=== PATIENT | female | born 1940 | race Caucasian/White ===

== ENCOUNTER → 2016-10-19 | Outpatient (CLI) | payer OTHER ==
[~2016-10-19] VITALS: Ht 160 cm; Wt 68.9 kg
[~2016-10-19] MED LIST: ADULT LOW DOSE81 MG PO; ALTERIL; AVALIDE 150-121 EACH PO; CELEBREX 200 M200 M1 PO; CENTRUM SILVER1 EAC1 PO; CITRACAL + D C1 EACH PO; CLONAZEPAM 1 MG1 M1; CLONAZEPAM 1 MG1 M1 PO; CO Q-10200 MG PO; COLACE100 MG PO; COUMADIN 5 MG TA5 M1 PO; DOCUSATE SODIU100 MG PO; DULERA 100 MCG/13 GM; FLEXERIL PO; HYDROCHLOROTH12.5 MG PO; HYDROCODON-ACE1 EAC4 PO; HYDROCODON-ACE1 EAC5 PO; HYDROXYCHLOROQ200 M1 PO; IRBESARTAN-HCT1 EAC1 PO; LESCOL XL80 MG PO; LIDODERM 5%1 PATC1 TRANSDERM; LOVENOX SC; MECLIZINE HCL25 M1 PO; MOBIC15 MG PO; NORCO 5-325 TA1 EACH PO; PROAIR HFA8.5 GM; PROLIA60 MG/1 ML SQ; SLOW FE 160MG160 MG PO; SYMBICORT160 MCG/4. INH; SYNTHROID PO; TIROSINT125 MCG PO; TOPAMAX50 MG PO; TRAMADOL 50 MG50 MG PO; TRICOR145 MG PO; TRILIPIX OR; VITAMIN E400 UNIT PO; WELLBUTRIN SR150 MG PO; ZEGERID 40 MG1 EACH PO; ZETIA10 MG PO; [UNRECOGNIZED DRUG - OTHER] PO; pravastatin PO
--- NOTE | ~2016-10-19 | HPC ---
[facility] [address] [place] [address] PAIN MANAGEMENT CONSULTATION Name: KERLINE STERLING Bruce Room #: REG [facility].#: [id number] Admission: 10/19/16 Attend Phys: Junaid Syed DO Discharge: Date of : 38 Report #: [id number] THIS REPORT FOR: //name// CC: Tay Syed The patient is a very pleasant 76-year-old female, being treated for lumbar radiculopathy status post decompressive laminectomy, history of cervical radiculopathy. The patient was seen nearly a year ago, 10/07/2015, for lumbar radiculopathy, given a single L5-S1 epidural injection with near 90% relief for many months, pain has gradually begun to recur without antecedent trauma and overuse. Pain is in the low back radiating to the right leg. The patient rises from chair using armrest, modestly antalgic gait. Lumbar flexion is limited. Positive straight leg raise on the right. Diffuse tenderness across the low back. No discrete trigger points were noted. ASSESSMENT: Symptomatic lumbar radiculopathy status post decompressive laminectomy. The patient had excellent relief following a single injection nearly a year ago, pain has begun to recur without antecedent trauma and overuse. Clinical exam corresponds with L5 radicular pattern. RECOMMENDATION: Lumbar epidural injection under fluoroscopy at L5-S1. Follow up in 3 weeks for reevaluation, cancel if doing well. PROCEDURE: Lumbar epidural injection under fluoroscopy. PROCEDURE NOTE: After both written and informed consent to include risk of spinal cord damage, increased pain, weakness and dural puncture, the patient was taken to the fluoroscopy suite, placed in the prone position. After sterile prep and drape, a skin wheal with lidocaine was raised. A 22-gauge epidural Tuohy needle was inserted in the midline at L5-S1 with good loss to resistance. Negative aspiration for cerebrospinal fluid or blood was noted. Then 1 mL of Omnipaque under biplanar fluoroscopy showed good spread within the epidural space. This was followed with 80 mg of triamcinolone plus 1 mL of 1.5% preservative-free Xylocaine, 0.5 mL Xylocaine was then injected to flush the needle; it was removed. The patient was monitored for an appropriate period of time and discharged in good and stable condition. By: 1224 [id number] Junaid Syed DO /nt
[2016-10-19 11:19] VITALS: BP 147/84
== END ==
LOC: PAIN 06:48
DX: M54.16 Radiculopathy, lumbar region (principal); M54.12 Radiculopathy, cervical region; Z98.890 Other specified postprocedural states

== ENCOUNTER → 2017-12-11 | Outpatient (CLI) | payer OTHER ==
[~2017-12-11] VITALS: Ht 160 cm; Wt 69.4 kg
[~2017-12-11] MED LIST changes: +CALCIUM 500 +1 EAC5 PO; +FENOFIBRIC ACI135 MG PO; +FIBER500 MG PO; +LIDODERM1 EACH TRANSDERM; +MOBIC7.5 MG PO; +OMEPRAZOLE-BIC1 EAC1 PO; +PRAVACHOL40 MG PO; +ROPINIROLE HCL2 MG PO; -TRILIPIX OR; +TRILIPIX PO
--- NOTE | ~2017-12-11 | PATH ---
[facility] [address] [place] [address] PATHOLOGY RPT PROCEDURE Name: KERLINE STERLING Bruce Room #: REG [facility] Janette.#: [id number] Admission: 12/11/17 Date of : 38 Discharge: Report #: [id number] Path Case #: [id number] [facility] Accession Number: [id number] . 01 Material submitted: . BIOPSY OF COLITIS @ 35 CM R/O ISCHEMIC COLITIS . 01 Clinical history: . Pre-Op DX: Rectal bleeding Post-Op DX: Colitis, hemorrhoids . 02 Diagnosis: Large intestinal mucosa, biopsy of colitis at 35 cm, rule out ischemic colitis, endoscopic biopsy: - Compatible with ischemic colitis. (Please see comment). - Negative for dysplasia or malignancy. [facility]/12/12/2017 . 02 Comment: Examination of the "colitis at 35 cm", biopsy tissue shows fibrotic lamina propria, loss of surface epithelium associated with ulceration, as well as degenerative changes within the lamina propria including loss of crypts in multiple areas. Fibrin-filled vessels are not identified. Subtle architectural abnormalities are present. Overall, provided the clinical suspicion of ischemic colitis, the findings are certainly compatible with ischemic colitis. The differential diagnosis includes pseudomembranous colitis, as well as medication-induced colitis. There is no dysplasia or malignancy present. . (IUV:mml; 12/12/17) . 02 Electronically signed: . Edwige Frank MD, Pathologist NPI- [id number] . 01 Gross description: . Received in formalin labeled "Kerline Sterling, BX of colitis, rule out ischemic colitis," and additionally labeled on the requisition as "at 35 cm," are 4 segments of humphries soft tissue measuring 1.1 x 0.5 x 0.1 cm in aggregate dimensions and ranging from 0.2 to 0.5 cm in maximum dimension. The specimen is submitted entirely in cassette A1. (TSD; 12/11/2017) TOB/TOB . 02 Pathologist provided ICD-10: K55.9 . [address] [address] PATHOLOGY RPT PROCEDURE Name: KERLINE STERLING Room #: REG [facility] Rajwinder#: [id number] Admission: 12/11/17 Date of : 38 Discharge: Report #: [id number] Path Case #: [id number] [facility] . [id number] Performed at: 01 [facility] [address], [place], [place] [id number] MD Jimy Tamez MD Phone: [phone] Performed at: [address] [id number] MD Edwige Frank MD Phone: [phone]
--- NOTE | ~2017-12-11 | P ---
[facility] [place] [address] PROCEDURE REPORT Name: KERLINE STERLING Room #: REG [facility]#: [id number] Admission: 12/11/17 Attend Phys: Julio C Kirby Discharge: Date of : 38 Report #: [id number] THIS REPORT FOR: //name// CC: Julio C Caro DATE OF SERVICE: 12/11/2017 PROCEDURE PERFORMED: Flexible sigmoidoscopy with biopsies. HISTORY OF PRESENT ILLNESS: The patient is a 77-year-old female who was seen by myself in the office on 10/31/2017 with complaints of intermittent bright red blood per rectum, which she believes was coming from her rectum and not her vagina, but she was not sure. At that time, we decided to do Hemoccult testing of her stools, 2 of 3 were heme positive. She does not have a long history of anemia. Her last colonoscopy by myself was in February 2015 in which sigmoid diverticulosis was noted as well as internal hemorrhoids, but no evidence of bleeding, otherwise negative. Plan is for flexible sigmoidoscopy. DESCRIPTION OF PROCEDURE: The risks and benefits of the procedure were explained to the patient, those risks including but not limited to bleeding, perforation, the risk of sedation. She understood these risks and gave informed consent. Sedation was given using propofol per anesthesia. Next, a digital rectal exam was initially performed, which was normal. Next, using a standard Olympus colonoscope, the scope was placed in the patient's anus and advanced under direct vision into the transverse colon at which point solid stool was noted. The scope was then slowly withdrawn. The overall prep in the left colon was good. The descending colon was normal. At 35 cm in the sigmoid colon, there was a small area of colitis. This was approximately 2-3 cm in length. There was no active bleeding. Biopsies were obtained. A few scattered diverticula were noted in the sigmoid colon as well. No evidence of inflammation. The rectal mucosa was normal. Close examination of the anal canal showed small internal hemorrhoids. No active bleeding, but there were some areas of erythema. The scope was then withdrawn and the procedure terminated. The patient tolerated the procedure well. IMPRESSION: 1. Small area of colitis in the sigmoid colon at 35 cm. Biopsies were obtained to rule out ischemic colitis. 2. Diverticulosis without inflammation. 3. Small internal hemorrhoids with mild erythema. No active bleeding was noted throughout the exam today. RECOMMENDATIONS: 1. Await biopsy results. [address] [address] PROCEDURE REPORT Name: KERLINE STERLING Room #: REG [facility]#: [id number] Admission: 12/11/17 Attend Phys: Julio C Kirby Discharge: Date of : 38 Report #: [id number] 2. Would recommend Analpram b.i.d. 3. If biopsies are consistent with ischemic colitis, may need further workup including ultrasound with Dopplers. Thank you for allowing me to participate in her care. <ELECTRONICALLY SIGNED> By: Julio C Mcintosh MD 12/13/17 [id number] Julio C Mcintosh MD /nt
[2017-12-11 11:22] LABS: HEMATOCRIT 30.9 % (37.0-47.0); HEMOGLOBIN 10.5 gm/dL (12.0-15.0); MCH 31.8 pg (26.0-34.0); MCHC 33.9 g/dL (28.0-37.0); MCV 93.9 fL (80.0-100.0); RBC 3.29 mil/uL (4.20-5.00); RDW 14.1 % (10.5-14.5); WBC 6.9 thou/uL (4.0-11.0)
== END | disposition home or self-care (01) ==
LOC: GI 08:22
PROVIDERS: Specialist
DX: K55.9 Vascular disorder of intestine, unspecified (principal); K57.30 Diverticulosis of large intestine without perforation or abscess without bleeding; K64.8 Other hemorrhoids; I10 Essential (primary) hypertension; E78.5 Hyperlipidemia, unspecified; G47.33 Obstructive sleep apnea (adult) (pediatric); F32.9 Major depressive disorder, single episode, unspecified; F41.9 Anxiety disorder, unspecified; K21.9 Gastro-esophageal reflux disease without esophagitis; E03.9 Hypothyroidism, unspecified; M19.90 Unspecified osteoarthritis, unspecified site; Z87.891 Personal history of nicotine dependence; Z98.890 Other specified postprocedural states; Z98.41 Cataract extraction status, right eye; Z98.42 Cataract extraction status, left eye; Z88.8 Allergy status to other drugs, medicaments and biological substances; Z79.82 Long term (current) use of aspirin
CPT/HCPCS: 62110; 62900

== ENCOUNTER → 2017-12-23 | Outpatient (CLI) | payer OTHER | LOC: ULTRA 07:19 | DX: D64.9 Anemia, unspecified (principal); K55.9 Vascular disorder of intestine, unspecified; K57.90 Diverticulosis of intestine, part unspecified, without perforation or abscess without bleeding; K64.8 Other hemorrhoids; L53.9 Erythematous condition, unspecified ==